=== PATIENT | female | born 1990 | race Caucasian/White ===

== ENCOUNTER → 2016-05-10 | Outpatient (CLI) | payer BC | LOC: COL.RAD 10:18 | DX: M25.552 Pain in left hip (principal) | CPT/HCPCS: J3301 ==

== ENCOUNTER → 2016-07-05 | Outpatient (CLI) | payer BC | LOC: COL.RAD 08:19 | DX: M25.552 Pain in left hip (principal) | CPT/HCPCS: J3301; Q9967 ==

== ENCOUNTER 2016-10-04 15:00 | Outpatient (RCR) | payer BC | END 2016-10-04 17:45 | disposition home or self-care (01) | LOC: WSC 15:00 | DX: M25.551 Pain in right hip (principal) ==

== ENCOUNTER → 2016-10-31 | Outpatient (CLI) | payer BC | LOC: COL.RAD 08:38 | DX: M25.551 Pain in right hip (principal) | CPT/HCPCS: J3301; Q9967 ==

== ENCOUNTER 2017-02-01 10:56 | Emergency (ER) | payer BC ==
[~2017-02-01] VITALS: Ht 177.8 cm; Wt 68.2 kg
[2017-02-01 11:00] VITALS: BP 141/63; TEMP 97.7
[2017-02-01] MEDS ORDERED: SYNTHROID0.05 MG/TA PO (11:04)
[2017-02-01] MEDS ORDERED: ALDACTONE50 MG PO (11:04)
[2017-02-01] MEDS ORDERED: ASPIRIN 81M81 MG/TA2 PO (11:05)
[2017-02-01 11:29] LABS: PH 7 (5-8); SQUAMOUS EPITHELIAL 0-2 /hpf; URINE APPEARANCE Clear; URINE BACTERIA None Seen /hpf; URINE BILIRUBIN Negative (NEGATIVE); URINE BLOOD 2+ (NEGATIVE); URINE COLOR Yellow; URINE GLUCOSE Negative (NEGATIVE); URINE KETONE Negative (NEGATIVE); URINE RBC 20-50 /hpf; URINE UROBILINOGEN Negative (NEGATIVE); URINE WBC 0-2 /hpf
[2017-02-01 12:06] LABS: BASO % 0.3 % (0.0-2.0); GRAN # 10.5 (1.4-6.5); GRAN % 89.9 % (42.2-75.2); HEMATOCRIT 34.5 % (37.0-47.0); HEMOGLOBIN 11.4 g/dl (12.5-16.0); LYMPH # 0.5 (1.2-3.4); LYMPH % 4.1 % (20.0-51.0); MEAN CELL VOLUME 91 fl (80.0-100.0); MEAN CORPUSCULAR HEMOGLOBIN 30 pg (27.0-31.0); MEAN CORPUSCULAR HGB CONC 33 g/dl (33.0-37.0); MEAN PLATELET VOLUME 11.1 fl (7.4-10.4); MONO # 0.6 (0.1-0.6); MONO % 5.4 % (1.7-9.3); PLATELET COUNT 236 K/mm3 (130-400); REDCELL DISTRIBUTION WIDTH-CV 13.6 % (11.5-14.5); WHITE BLOOD COUNT 11.7 K/mm3 (4.8-10.8)
[2017-02-01 12:16] LABS: ADJUSTED CALCIUM 9.3 mg/dL (8.4-10.2); ALBUMIN 4.5 gm/dL (3.5-5.0); BILIRUBIN,TOTAL 0.8 mg/dL (0.0-1.0); CALCIUM 9.7 mg/dL (8.4-10.2); CREATININE, serum 0.93 mg/dL (0.52-1.25); POTASSIUM 4.1 mmol/L (3.4-5.0); TOTAL PROTEIN 7.2 gm/dL (6.4-8.2)
[2017-02-01] MEDS ORDERED: PERCOCET 325 MG1 TA2 PO (13:26)
[2017-02-01] MEDS ORDERED: PHENERGAN 25 TA25 MG PO (13:26)
[2017-02-01 13:44] VITALS: PULSE 62
== END 2017-02-01 13:53 | disposition home or self-care (01) ==
LOC: COL.ER 10:56
PROVIDERS: Physician Assistant
DX: N20.0 Calculus of kidney (principal); E03.9 Hypothyroidism, unspecified; Z98.890 Other specified postprocedural states; Z79.82 Long term (current) use of aspirin
CPT/HCPCS: J1170; J1885; J2550; J7030

== ENCOUNTER 2017-02-08 07:28 | Day surgery (SDC) | payer BC ==
[~2017-02-08] VITALS: Ht 177.8 cm; Wt 62.9 kg
[~2017-02-08 07:28] MED LIST: ALDACTONE50 MG PO; ASPIRIN 81M81 MG/TA2 PO; PERCOCET 325 MG1 TA2 PO; PHENERGAN 25 TA25 MG PO; SYNTHROID0.05 MG/TA PO
[2017-02-08 08:04] VITALS: BP 111/72; PULSE 99; TEMP 97.7
[2017-02-08 08:39] LABS: PH 6 (5-8); SQUAMOUS EPITHELIAL 0-2 /hpf; URINE APPEARANCE Clear; URINE BACTERIA None Seen /hpf; URINE BILIRUBIN Negative (NEGATIVE); URINE BLOOD Negative (NEGATIVE); URINE COLOR Yellow; URINE GLUCOSE Negative (NEGATIVE); URINE KETONE 2+ (NEGATIVE); URINE RBC 0-2 /hpf; URINE UROBILINOGEN Negative (NEGATIVE); URINE WBC 0-2 /hpf
[2017-02-08 10:40] VITALS: BP 125/62; PULSE 69; TEMP 97.4
[2017-02-08 10:55] VITALS: BP 122/63; PULSE 65
[2017-02-08] MEDS ORDERED: PYRIDIUM 100MG100 MG PO (10:58)
[2017-02-08] MEDS ORDERED: COLACE 100100 MG/CAP PO (10:59)
[2017-02-08] MEDS ORDERED: NORCO 325 MG-51 TAB PO (10:59)
[2017-02-08 11:10] VITALS: BP 123/82; PULSE 69
== END 2017-02-08 12:01 | disposition home or self-care (01) ==
LOC: SDCO 07:28
PROVIDERS: Urology
DX: R10.9 Unspecified abdominal pain (principal); J45.909 Unspecified asthma, uncomplicated; Z83.3 Family history of diabetes mellitus; Z82.49 Family history of ischemic heart disease and other diseases of the circulatory system; Z80.8 Family history of malignant neoplasm of other organs or systems; E03.9 Hypothyroidism, unspecified
CPT/HCPCS: C1769; C2617; J0690; J2704; J3010; J7120; Q9967

== ENCOUNTER 2017-03-21 07:58 | Outpatient (RCR) | payer BC ==
[~2017-03-21 07:58] MED LIST changes: +COLACE 100100 MG/CAP PO; +NORCO 325 MG-51 TAB PO; +PYRIDIUM 100MG100 MG PO
== END 2017-03-24 12:46 ==
LOC: WSC 07:58 → WSPT 08:00 → WSC 08:00
DX: Z47.89 Encounter for other orthopedic aftercare (principal)

== ENCOUNTER 2017-04-20 07:00 | Outpatient (RCR) | payer BC | END 2017-05-04 | disposition still patient (30) | LOC: WSPT | DX: Z47.89 Encounter for other orthopedic aftercare (principal); M25.852 Other specified joint disorders, left hip | CPT/HCPCS: G0283-GP ==

== ENCOUNTER 2017-07-20 07:00 | Outpatient (RCR) | payer BC | END 2017-08-04 08:16 | disposition home or self-care (01) | LOC: WSPT 07:00 | DX: Z47.89 Encounter for other orthopedic aftercare (principal) ==

== ENCOUNTER → 2017-09-29 | Outpatient (CLI) | payer BC | LOC: COL.RAD 13:23 | DX: M25.551 Pain in right hip (principal) | CPT/HCPCS: J3301; Q9967 ==

== ENCOUNTER → 2017-10-27 | Outpatient (CLI) | payer BC | LOC: COL.RAD 10:09 | DX: M25.851 Other specified joint disorders, right hip (principal) | CPT/HCPCS: G0260; J3301 ==

== ENCOUNTER → 2017-11-24 | Outpatient (CLI) | payer BC | LOC: COL.RAD 08:40 | DX: M25.551 Pain in right hip (principal) | CPT/HCPCS: J3301 ==

== ENCOUNTER → 2017-12-15 | Outpatient (CLI) | payer BC | LOC: COL.RAD 11:17 | DX: N83.8 Other noninflammatory disorders of ovary, fallopian tube and broad ligament (principal); K76.89 Other specified diseases of liver; Z87.442 Personal history of urinary calculi | CPT/HCPCS: Q9967 ==

== ENCOUNTER 2018-02-02 07:39 | Emergency (ER) | payer BC ==
[~2018-02-02] VITALS: Ht 177.8 cm; Wt 67.3 kg
[2018-02-02 07:43] VITALS: TEMP 97.8
[2018-02-02 07:52] LABS: COLLECTION METHOD CLEAN CATCH
[2018-02-02 07:58] LABS: MUCOUS Present /lpf; PH 7 (5-8); SQUAMOUS EPITHELIAL 0-2 /hpf; URINE APPEARANCE Clear; URINE BACTERIA Rare /hpf; URINE BILIRUBIN Negative (NEGATIVE); URINE BLOOD Negative (NEGATIVE); URINE COLOR Yellow; URINE GLUCOSE Negative (NEGATIVE); URINE KETONE Negative (NEGATIVE); URINE LEUKOCYTE ESTERASE Negative (NEGATIVE); URINE NITRATE Negative (NEGATIVE); URINE PROTEIN(semi-quant) Negative (NEGATIVE); URINE RBC None Seen /hpf; URINE UROBILINOGEN Negative (NEGATIVE)
[2018-02-02 08:23] LABS: BASO % 0.7 % (0.0-2.0); EOS # 0.1 (0.0-0.7); EOS % 1.5 % (0-4.0); GRAN # 3.3 (1.4-6.5); HEMATOCRIT 37.7 % (37.0-47.0); HEMOGLOBIN 12.7 g/dl (12.5-16.0); LYMPH # 0.9 (1.2-3.4); LYMPH % 19.3 % (20.0-51.0); MEAN CELL VOLUME 89 fl (80.0-100.0); MEAN CORPUSCULAR HEMOGLOBIN 30 pg (27.0-31.0); MEAN CORPUSCULAR HGB CONC 34 g/dl (33.0-37.0); MEAN PLATELET VOLUME 10.3 fl (7.4-10.4); MONO # 0.3 (0.1-0.6); MONO % 6.1 % (1.7-9.3); PLATELET COUNT 232 K/mm3 (130-400); RED BLOOD COUNT 4.25 M/mm3 (4.10-5.30); REDCELL DISTRIBUTION WIDTH-CV 11.9 % (11.5-14.5)
[2018-02-02 08:35] LABS: ALANINE AMINOTRANSFERASE 25 U/L (9-52); ALBUMIN 4.2 gm/dL (3.5-5.0); ALKALINE PHOSPHATASE 52 U/L (50-136); ANION GAP 6 mmol/L (7-16); AST,SGOT 16 U/L (15-37); BILIRUBIN,TOTAL 0.6 mg/dL (0.0-1.0); BLOOD UREA NITROGEN 10 mg/dL (7-17); CARBON DIOXIDE 30 mmol/L (22-30); CHLORIDE 101 mmol/L (98-107); CREATININE, serum 0.71 mg/dL (0.52-1.25); GLUCOSE 91 mg/dL (74-106); LIPASE 49 U/L (23-300); POTASSIUM 3.8 mmol/L (3.4-5.0); SODIUM 138 mmol/L (137-145); TOTAL PROTEIN 7.1 gm/dL (6.4-8.2)
[2018-02-02 08:36] LABS: C-REACTIVE PROTEIN < 0.5 mg/dL (0.0-0.9)
[2018-02-02] MEDS ORDERED: PRILOSEC 20MG20 MG PO (08:45)
[2018-02-02] MEDS ORDERED: CARAFATE 1GM1 G PO (08:45)
[2018-02-02] MEDS ORDERED: SPRINTEC 35 MCG1 TAB PO (08:48)
[2018-02-02 08:49] VITALS: BP 122/66; PULSE 72
== END 2018-02-02 08:58 | disposition home or self-care (01) ==
LOC: COL.ER 07:39
PROVIDERS: Physician Assistant
DX: R10.12 Left upper quadrant pain (principal); E03.9 Hypothyroidism, unspecified; Z87.442 Personal history of urinary calculi

== ENCOUNTER → 2018-03-05 | Outpatient (CLI) | payer BC ==
[~2018-03-05] MED LIST changes: +CARAFATE 1GM1 G PO; +PRILOSEC 20MG20 MG PO; +SPRINTEC 35 MCG1 TAB PO
== END ==
LOC: COL.RAD 07:45
DX: R11.2 Nausea with vomiting, unspecified (principal)
CPT/HCPCS: A9541

== ENCOUNTER 2018-04-25 08:05 | Outpatient (RCR) | payer BC | END 2018-07-24 | disposition home or self-care (01) | LOC: WSC → WSPT 08:15 | DX: Z01.818 Encounter for other preprocedural examination (principal) ==

== ENCOUNTER 2018-07-19 07:00 | Outpatient (RCR) | payer BC | END 2018-07-31 | disposition still patient (30) | LOC: WSPT | DX: Z47.89 Encounter for other orthopedic aftercare (principal) ==

== ENCOUNTER → 2018-07-20 | Outpatient (CLI) | payer BC | LOC: MC.RAD 08:13 | DX: N63.10 Unspecified lump in the right breast, unspecified quadrant (principal) ==

== ENCOUNTER → 2018-10-29 | Outpatient (CLI) | payer BC | LOC: COL.RAD 13:24 | DX: M25.551 Pain in right hip (principal); Z98.890 Other specified postprocedural states | CPT/HCPCS: J3301; Q9967 ==

== ENCOUNTER → 2019-04-23 | Outpatient (CLI) | payer BC | LOC: COL.RAD 08:42 | DX: M25.48 Effusion, other site (principal); M25.551 Pain in right hip; Z98.890 Other specified postprocedural states | CPT/HCPCS: A9585; Q9967 ==

== ENCOUNTER → 2020-03-18 | Outpatient (CLI) | payer BC | LOC: COL.RAD 08:45 | DX: S60.211A Contusion of right wrist, initial encounter (principal) | CPT/HCPCS: A9585; Q9967 ==

== ENCOUNTER → 2020-10-01 | Outpatient (CLI) | payer BC | LOC: COL.RAD 10:08 | DX: M25.551 Pain in right hip (principal) | CPT/HCPCS: J3301; Q9967 ==

== ENCOUNTER → 2020-12-01 | Outpatient (CLI) | payer BC | LOC: COL.RAD 12:21 | DX: M25.851 Other specified joint disorders, right hip (principal); Z96.643 Presence of artificial hip joint, bilateral | CPT/HCPCS: A9585; Q9967 ==

== ENCOUNTER 2022-06-18 12:46 | Emergency (ER) | payer BC ==
[~2022-06-18] VITALS: Ht 177.8 cm; Wt 70.5 kg
[2022-06-18 12:58] VITALS: BP 149/75; PULSE 68; TEMP 97.7
== END 2022-06-18 13:40 | disposition home or self-care (01) ==
LOC: COL.ER 12:46
DX: K62.89 Other specified diseases of anus and rectum (principal); G89.18 Other acute postprocedural pain; Z98.890 Other specified postprocedural states